=== PATIENT | female | born 1965 | race American Indian/Alaskan Native ===

== ENCOUNTER 2016-09-19 03:13 | Emergency (ER) | payer BC ==
[2016-09-19 03:13] VITALS: BMI 10.8
[2016-09-19] MEDS ORDERED: Albuterol-Ipratrop 3 mg / 0.5 (3 ml) UD ONE ×2 (03:32→03:43)
[2016-09-19] MEDS: Albuterol-Ipratrop 3 mg / 0.5 (3 ml) UD IH SCH ×2 (03:35→03:40)
--- NOTE | 2016-09-19 03:36 | C.PDOC ---
History Of Present Illness 50 y/o female, with history of asthma, presents to emergency department with complaint of shortness of breath and chest tightness, worsening since 8:00 PM. Patient reports she has had similar symptoms for the past 2 weeks, but that they have been manageable up until last night. Pt was seen by PMD last week and was d/c on promethazine DM, prednisone and nebs. She reports prior hospitalization and intubation for asthma in 2014. Denies fever, chills, chest pain, nausea, vomiting, dizziness, recent travel or other associated symptoms. Time Seen by Provider: 09/19/16 03:25 Chief Complaint (Nursing): Shortness Of Breath History Per: Patient History/Exam Limitations: no limitations Onset/Duration Of Symptoms: Days Current Symptoms Are (Timing): Still Present Current Respiratory Medications: See Home Med List Associated Symptoms: denies: Fever, Bloody Cough, Ankle/Leg Swelling, Dizziness , Light-headedness Recent travel outside of the [place]: No Past Medical History Reviewed: Historical Data, Nursing Documentation, Vital Signs Vital Signs: Last Vital Signs Temp 97.8 F 09/19/16 03:19 Pulse 87 09/19/16 03:19 Resp 17 09/19/16 03:43 BP 152/92 H 09/19/16 03:19 Pulse Ox 96 09/19/16 05:04 - Medical History PMH: Anxiety, Asthma (hx of being intubated04/08/14) Family History: States: Unknown Family Hx - Social History Hx Tobacco Use: No Hx Alcohol Use: No Hx Substance Use: No - Immunization History Hx Tetanus Toxoid Vaccination: No Hx Influenza Vaccination: No Hx Pneumococcal Vaccination: No Review Of Systems Except As Marked, All Systems Reviewed And Found Negative. Constitutional: Negative for: Fever, Chills Cardiovascular: Negative for: Chest Pain, Palpitations Respiratory: Positive for: Shortness of Breath, Wheezing. Negative for: Cough Gastrointestinal: Negative for: Nausea, Vomiting, Abdominal Pain Skin: Negative for: Rash Neurological: Negative for: Headache, Dizziness Physical Exam - Physical Exam Appears: Non-toxic, No Acute Distress Skin: Normal Color, Warm, Dry, No Diaphoretic, No Rash Head: Atraumatic, Normacephalic Eye(s): bilateral: Normal Inspection, EOMI Oral Mucosa: Moist Throat: Normal, No Erythema Neck: Normal ROM, Supple Chest: Symmetrical Cardiovascular: Rhythm Regular Respiratory: Decreased Breath Sounds (all lung nina), No Accessory Muscle Use , Rhonchi, No Stridor, Wheezing (expiratory) Gastrointestinal/Abdominal: Soft, No Tenderness Back: Normal Inspection Extremity: Normal ROM Neurological/Psych: Oriented x3, Normal Speech, Normal Cognition ED Course And Treatment - Laboratory Results Result Diagrams: 09/19/16 03:44 09/19/16 03:44 O2 Sat by Pulse Oximetry: 96 (RA) Pulse Ox Interpretation: Normal - Radiology CXR Interpretation: Yes: No Acute Disease. No: Infiltrates Progress Note: Treated with duoneb, solumedrol. CxR, bloodwork ordered and reviewed. Reassessment Condition: Improved (Pt reports much improved symptoms and ambulated in ER w/o dyspnea. Will d/c pt home and plan of treatment d/w pt who agrees with plan and return precautions also d/w pt who expressed understanding of these instructions) Disposition Counseled Patient/Family Regarding: Studies Performed, Diagnosis, Need For Followup, Rx Given - Disposition Referrals: Celia Weiss MD [Staff Provider] - Disposition: HOME/ ROUTINE Disposition Time: 05:13 Condition: STABLE Additional Instructions: Increase Fluids Continue nebulizer treament as needed Continue prednisone take all meds prescribed from ER Follow up with PMD Return to ER if worse Prescriptions: Azithromycin [Zithromax] 250 mg PO DAILY #6 tab Cetirizine HCl [Zyrtec] 10 mg PO DAILY #20 capsule Promethazine/Codeine [Codeine/Promethazine 10 MG/5 Ml-6.25 MG/5 Ml] 5 ml PO DAILY #120 ml Instructions: Acute Bronchitis (ED) Forms: [employer] (French) - Clinical Impression Clinical Impression: Bronchitis with bronchospasm - PA / [employer] PI ARCHITECT / Resident Statement MD/DO has reviewed & agrees with the documentation as recorded. - Scribe Statement The provider has reviewed the documentation as recorded by the Eve Orr All medical record entries made by the Elaineibshaun were at my direction and personally dictated by me. I have reviewed the chart and agree that the record accurately reflects my personal performance of the history, physical exam, medical decision making, and the department course for this patient. I have also personally directed, reviewed, and agree with the discharge instructions and disposition.
[2016-09-19 03:47] LABS: BASO % 0.7 % (0.0-2.0); EOS # 0.8 K/uL (0.0-0.7); EOS % 14.1 % (0.0-4.0); HEMATOCRIT 39.4 % (34.0-47.0); LYMPH # 2.4 K/uL (1.0-4.3); LYMPH % 40.4 % (20.0-40.0); MEAN CELL VOLUME 86.2 fL (81.0-99.0); MEAN CORPUSCULAR HEMOGLOBIN 28.4 pg (27.0-31.0); MEAN CORPUSCULAR HGB CONC 32.9 g/dL (33.0-37.0); MEAN PLATELET VOLUME 7.5 fL (7.2-11.7); MONO # 0.5 K/uL (0.0-0.8); MONO % 8.9 % (0.0-10.0); RED CELL DISTRIBUTION WIDTH 15.6 % (11.5-14.5)
[2016-09-19 04:06] LABS: ALKALINE PHOSPHATASE 73 U/L (38-126); ALT/SGPT 31 U/L (9-52); AST/SGOT 33 U/L (14-36); BILIRUBIN,TOTAL 0.5 mg/dL (0.2-1.3); BLOOD UREA NITROGEN 10 mg/dL (7-17); CALCIUM 8.5 mg/dl (8.6-10.4); CARBON DIOXIDE 26 mmol/L (22-30); CHLORIDE 100 mmol/L (98-107); GFR AFRICAN-AMERICAN > 60; GLUCOSE,RANDOM 105 mg/dL (65-105); POTASSIUM 3.5 mmol/L (3.6-5.2); SODIUM 139 mmol/L (132-148); TOTAL PROTEIN 7.3 g/dL (6.3-8.3)
[2016-09-19 05:31] VITALS: BP 150/90; PULSE 92; RESP 20; TEMP 98; O2SAT 97
--- NOTE | 2016-09-19 08:12 | RAD ---
HISTORY: SOB, chest tightness COMPARISON: Chest x-ray performed 04/13/15 TECHNIQUE: Chest PA and lateral FINDINGS: Examination limited by habitus. LUNGS: No focal consolidation. Please note that chest x-ray has limited sensitivity for the detection of pulmonary masses. PLEURA: No significant pleural effusion identified. No definite pneumothorax . CARDIOVASCULAR: Heart size appears within normal limits. OSSEOUS STRUCTURES: Degenerative changes of the spine. VISUALIZED UPPER ABDOMEN: Unremarkable. OTHER FINDINGS: None. IMPRESSION: No focal consolidation, significant pleural effusion, or definite pneumothorax identified.
== END 2016-09-19 05:31 | disposition home or self-care (01) ==
LOC: C.ER 03:13
DX: J20.9 Acute bronchitis, unspecified (principal)
CPT/HCPCS: 71020; 80053; 85025; 94640; 96374; 99283; J2930

== ENCOUNTER 2018-01-26 19:38 | Emergency (ER) | payer BC ==
[2018-01-26 19:38] VITALS: BMI 10.8
[2018-01-26 19:46] VITALS: BP 167/93; PULSE 58; RESP 18; TEMP 97.7; O2SAT 97
--- NOTE | 2018-01-26 20:40 | C.PDOC ---
History Of Present Illness 52 y/o F p/w R ankle pain s/p falling down steps, approximately 3 steps just prior to arrival. Now with pain on lateral R ankle. Denies headstrike, LOC, nausea, vomiting. Declines pain medication in ED. Time Seen by Provider: 01/26/18 19:51 Chief Complaint (Nursing): Lower Extremity Problem/Injury Past Medical History Vital Signs: Last Vital Signs Temp 97.7 F 01/26/18 19:43 Pulse 58 L 01/26/18 19:43 Resp 18 01/26/18 19:43 BP 167/93 H 01/26/18 19:43 Pulse Ox 97 01/26/18 19:43 - Medical History PMH: Anxiety, Asthma (hx of being intubated04/08/14) Denies: Chronic Kidney Disease Family History: States: Unknown Family Hx - Social History Hx Tobacco Use: No Hx Alcohol Use: No Hx Substance Use: No - Immunization History Hx Tetanus Toxoid Vaccination: No Hx Influenza Vaccination: No Hx Pneumococcal Vaccination: No Review Of Systems Except As Marked, All Systems Reviewed And Found Negative. Constitutional: Negative for: Fever Gastrointestinal: Negative for: Vomiting Physical Exam - Physical Exam Additional Physical Exam Comments: Gen: NAD Head: NC/AT CV: DP pulse 2+ Neuro: Sensation to ligh ttouch in tact in foot. Able to move digits. Extremities: Tenderness over lateral malleolus and ATFL. No tenderness over base of 5th metatarsal or midfoot. No tenderness at proximal tib/fib. ED Course And Treatment O2 Sat by Pulse Oximetry: 97 Medical Decision Making Medical Decision Making: CR Right ankle Report: Name: ARIAS PASCUAL Exam Date: Jan 26, 2018 8:41:15 PM EST Modality Type: CR\VT Description: CR - ANKLE COMPLETE 3VIEWS Gender: F Laterality: Right : 65 Referring Physician: Tim Cheung) EXAM: CR right Ankle, 3 View. CLINICAL HISTORY: PATIENT FELL. RT ANKLE PAIN COMPARISON: None provided. FINDINGS: BONES: No acute fracture or aggressive appearing osseous lesion. JOINTS: The joint spaces appear within normal limits. No dislocation. The ankle mortise is intact. SOFT TISSUES: The soft tissues are unremarkable. MISCELLANEOUS: Ccalcaneal spur IMPRESSION: Ccalcaneal spur Electronically signed on Jan 26, 2018 9:20:37 PM EST by: Jonathan Zhang M.D., Certified by [facility] wrap applied and crutches provided. Advised ibuprofen, ice, elevation. Disposition - Disposition Disposition: HOME/ ROUTINE Disposition Time: 21:41 Condition: STABLE Instructions: Ankle Sprain Forms: [facility] (Kyrgyz) - Clinical Impression Clinical Impression: Ankle sprain
--- NOTE | 2018-01-27 11:23 | RAD ---
Date of service: 01/26/2018 PROCEDURE: Right Ankle Radiographs. HISTORY: ankle pain COMPARISON: None available. FINDINGS: BONES: Bone alignment and mineralization are normal. There is no acute displaced fracture or bone destruction. There is a prominent plantar calcaneal spur. JOINTS: Normal. No osteoarthritis. Ankle mortise maintained. Talar dome intact SOFT TISSUES: Normal. OTHER FINDINGS: None. IMPRESSION: No acute fracture or dislocation.
== END 2018-01-26 22:00 | disposition home or self-care (01) ==
LOC: C.ER 19:38
DX: S93.401A Sprain of unspecified ligament of right ankle, initial encounter (principal); W10.9XXA Fall (on) (from) unspecified stairs and steps, initial encounter

== ENCOUNTER 2018-06-29 10:13 | Emergency (ER) | payer BC ==
[2018-06-29 10:13] VITALS: BMI 10.8
--- NOTE | 2018-06-29 11:25 | C.PDOC ---
History Of Present Illness 52 y/o female with hx asthma and ? arthritis c/o left shoulder pain that radiates down arm since yesterday. Patient denies any injury, heavy lifting or trauma. Patient took Tylenol without relief and admits to tingling around the left elbow. patient presently has arm in a sling. Time Seen by Provider: 06/29/18 11:20 Chief Complaint (Nursing): Upper Extremity Problem/Injury History Per: Patient History/Exam Limitations: no limitations Onset/Duration Of Symptoms: Days (1) Current Symptoms Are (Timing): Still Present Quality: "Pain" Recent travel outside of the [place]: No Additional History Per: Patient Past Medical History Reviewed: Historical Data, Nursing Documentation, Vital Signs Vital Signs: Last Vital Signs Temp 98.8 F 06/29/18 10:33 Pulse 66 06/29/18 10:33 Resp 20 06/29/18 10:33 BP 148/95 H 06/29/18 10:33 Pulse Ox 99 06/29/18 10:33 Primary Care Provider: Celia Weiss Medical History PMH: Anxiety, Asthma (hx of being intubated04/08/14) Denies: Chronic Kidney Disease Surgical History: No Surg Hx Family History: States: Unknown Family Hx - Social History Hx Tobacco Use: No Hx Alcohol Use: No Hx Substance Use: No - Immunization History Hx Tetanus Toxoid Vaccination: No Hx Influenza Vaccination: No Hx Pneumococcal Vaccination: No Review Of Systems Musculoskeletal: Positive for: Shoulder Pain (right shoulder radiating down right arm) Neurological: Positive for: Other (tingling around right elbow ). Negative for: Weakness, Numbness Physical Exam - Physical Exam Appears: Non-toxic, No Acute Distress, Other (right arm in sling) Skin: Warm, Dry Head: Atraumatic, Normacephalic Eye(s): bilateral: Normal Inspection Neck: Normal ROM, No Midline Cervical Tenderness, Other (Exquisite left trapezius tenderness) Extremity: Tenderness (Right humerus tenderness. No elbow tenderness. Able to pronate and supinate. ), Other (right hand and right wrist normal) Extremity: Right: Limited ROM To Joint (shoulder) Pulses: Left Radial: Normal, Right Radial: Normal Neurological/Psych: Oriented x3, Normal Speech, Normal Cognition ED Course And Treatment O2 Sat by Pulse Oximetry: 99 (on RA) Pulse Ox Interpretation: Normal - Other Rad Xray Lft Shoulder X-Ray: Viewed By Me, Read By Radiologist Interpretation: IMPRESSION: No fracture or lytic lesion. Arthrosis Medical Decision Making Medical Decision Making: Plan: Xray Lft Shoulder Tylenol 975mg PO Flexeril 10mg PO Lidoderm 5% 1ea TD xray shows arthrosis. pt with decreased pain. d/c wiht muscle relaxant, tylenol and ortho f/u Patient does not take NSAID's generally due to her asthma, will not give today. Disposition Counseled Patient/Family Regarding: Studies Performed, Diagnosis, Need For Followup, Rx Given - Disposition Referrals: Papa Barrios III, MD [Staff Provider] - Disposition Time: 13:01 Additional Instructions: Take patch off in 12 hours. Can use warm or cold compresses several times to left trapezius area. Muscle relaxatn up to 3 times a day- makes you sleepy, so no driving or working. May use sling for 1-2 days if helpful byt not longer or risk frozen shoulder, need to do shoulder exercises and follow up with PMD and orthopedics. Prescriptions: Acetaminophen [Tylenol 325mg tab] 650 mg PO Q4 #50 tab Cyclobenzaprine [Cyclobenzaprine HCl] 10 mg PO Q8 #9 tab Instructions: Muscle Spasms (DC), Active Range of Motion Exercises, Neck and Shoulders, Passive Range of Motion Exercises, Neck and Shoulders, Shoulder Pain (DC) Forms: [facility] (Italian), General Discharge Instructions - Clinical Impression Clinical Impression: Trapezius muscle spasm, Shoulder pain, left - PA / BENCH MOVER / Resident Statement MD/DO has reviewed & agrees with the documentation as recorded. - Scribe Statement The provider has reviewed the documentation as recorded by the Eve Burgos All medical record entries made by the Eve were at my direction and per sonally dictated by me. I have reviewed the chart and agree that the record accurately reflects my personal performance of the history, physical exam, medical decision making, and the department course for this patient. I have also personally directed, reviewed, and agree with the discharge instructions and disposition.
[2018-06-29] MEDS ORDERED: Lidocaine 5% Patch TD STA (11:43)
[2018-06-29] MEDS ORDERED: Lidocaine 5% Patch TD ONE (11:50)
--- NOTE | 2018-06-29 12:51 | RAD ---
Date of service: 06/29/2018 PROCEDURE: Radiographs of the Left Shoulder HISTORY: pain COMPARISON: No prior. TECHNIQUE: 3 views obtained. FINDINGS: BONES: . No fracture. JOINTS: Glenohumeral and acromioclavicular arthrosis SOFT TISSUES: Normal. OTHER FINDINGS: Thoracic spondylosis IMPRESSION: No fracture or lytic lesion. Arthrosis
[2018-06-29 13:16] VITALS: BP 146/93; PULSE 81; RESP 16; TEMP 98.2; O2SAT 97
== END 2018-06-29 13:15 | disposition home or self-care (01) ==
LOC: C.ER 10:13
DX: M25.512 Pain in left shoulder (principal); M62.838 Other muscle spasm

== ENCOUNTER 2018-06-29 23:56 | Emergency (ER) | payer BC ==
[2018-06-29 23:56] VITALS: BMI 10.8
[2018-06-30] MEDS ORDERED: Albuterol-Ipratrop 3 mg / 0.5 (3 ml) UD ONE ×2 (00:02→01:07)
--- NOTE | 2018-06-30 00:13 | C.PDOC ---
History Of Present Illness Patient was evaluated today for left shoulder pain, had CXR that was negative, sent home home with tylenol, flexeril, and lidoderm patch. She states after taking the flexeril she felt kind of jittery and SOB. She is currently speaking in complete sentences. Denies chest pain, fever, or chills. Patient was intubated for acute asthma exacerbation in 2014. Time Seen by Provider: 06/30/18 00:13 Chief Complaint (Nursing): Shortness Of Breath History Per: Patient History/Exam Limitations: no limitations Onset/Duration Of Symptoms: Hrs Current Symptoms Are (Timing): Still Present Current Respiratory Medications: See Home Med List Severity: Moderate Pain Scale Rating Of: 4 Associated Symptoms: denies: Fever, Chills, Chest Pain Recent travel outside of the [place]: No Past Medical History Reviewed: Historical Data, Nursing Documentation, Vital Signs Vital Signs: Last Vital Signs Temp 98.4 F 06/30/18 00:06 Pulse 100 H 06/30/18 00:06 Resp 21 06/30/18 00:06 BP 119/72 06/30/18 00:06 Pulse Ox 97 06/30/18 00:06 Primary Care Provider: Non [facility] Provider, - Medical History PMH: Anxiety, Asthma (hx of being intubated04/08/14) Denies: Chronic Kidney Disease Family History: States: No Known Family Hx - Social History Hx Tobacco Use: No Hx Alcohol Use: No Hx Substance Use: No - Immunization History Hx Tetanus Toxoid Vaccination: No Hx Influenza Vaccination: No Hx Pneumococcal Vaccination: No Review Of Systems Constitutional: Negative for: Fever, Chills Cardiovascular: Negative for: Chest Pain, Palpitations Respiratory: Positive for: Shortness of Breath. Negative for: Cough Gastrointestinal: Negative for: Nausea, Vomiting Neurological: Negative for: Weakness, Numbness Physical Exam - Physical Exam Appears: Non-toxic Skin: Warm, Dry Head: Normacephalic Oral Mucosa: Moist Neck: Trachea Midline, Supple Chest: Symmetrical, No Tenderness Cardiovascular: Rhythm Regular Respiratory: Decreased Breath Sounds, No Rales, No Rhonchi, Wheezing Gastrointestinal/Abdominal: Soft, No Tenderness Neurological/Psych: Oriented x3 ED Course And Treatment - Laboratory Results Result Diagrams: 06/30/18 01:03 06/30/18 01:03 ECG: Interpreted By Me, Viewed By Me ECG Rhythm: Sinus Rhythm (101), Nonspecific Changes O2 Sat by Pulse Oximetry: 97 (Room air) Pulse Ox Interpretation: Normal - Radiology CXR: Interpreted by Me, Viewed By Me CXR Interpretation: No: Infiltrates, Fracture, Pnemothorax Progress Note: Blood work, EKG, CXR, and urinalysis ordered. IV fluids, solumedrol, mag sulfate, and solumedrol administered. 2:30 no wheezing. feels fine. wants to go home. family at bedside(hipaa compliant) and agree Reevaluation Time: 02:28 Reassessment Condition: Improved Critical Care Time - Critical Care Note Total Time (in mins): 30 Documented critical care: time excludes all time spent performing seperately billable procedures. Medical Decision Making Medical Decision Making: Upon provider reevaluation patient is feeling better, is medically stable, and requires no further treatment in the ED at this time. Patient will be discharged home with Rx for prednisone, duoneb . Counseling was provided and all questions were answered regarding diagnosis and need for follow up with the referred clinic. There is agreement to discharge plan. Return if symptoms persist or worsen. Disposition Counseled Patient/Family Regarding: Studies Performed, Diagnosis, Need For Followup, Rx Given - Disposition Referrals: Gary Dominguez MD [Staff Provider] - Disposition: HOME/ ROUTINE Disposition Time: 00:13 Condition: FAIR Additional Instructions: Please return if symptoms recur Prescriptions: Albuterol/Ipratropium [Duoneb 3 MG/3 Ml-0.5 MG/3 Ml 3 Ml] 1 ea IH QID PRN #50 neb PRN Reason: Wheezing Prednisone [Deltasone] 20 mg PO DAILY #5 tablet Instructions: Asthma, Adult (DC) Forms: [employer] (Iraqi) - Clinical Impression Clinical Impression: Exacerbation of asthma - Scribe Statement The provider has reviewed the documentation as recorded by the Scribe Jerry Moscoso All medical record entries made by the Scribe were at my direction and personally dictated by me. I have reviewed the chart and agree that the record accurately reflects my personal performance of the history, physical exam, medical decision making, and the department course for this patient. I have also personally directed, reviewed, and agree with the discharge instructions and disposition.
[2018-06-30] MEDS ORDERED: Sodium Chloride 0.9% 1,000 ML IV ONE (00:26)
[2018-06-30] MEDS ORDERED: Magnesium Sulfate 1 gm in D5W 1 GM/100 ML BAG IVPB SCH (00:30)
[2018-06-30] MEDS: Albuterol-Ipratrop 3 mg / 0.5 (3 ml) UD IH SCH (00:59)
[2018-06-30] MEDS ORDERED: Sodium Chloride 0.9% 1,000 ML ONE (01:06)
[2018-06-30] MEDS ORDERED: Magnesium Sulfate 1 gm in D5W 2 GM/200 ML BAG IVPB ONE (01:07)
[2018-06-30 01:15] LABS: ARTERIAL BLOOD GAS HCO3 24.5 mmol/L (21-28); ARTERIAL BLOOD GAS O2 SAT 97.9 % (95-98); ARTERIAL BLOOD GAS PCO2 39 mm/Hg (35-45); ARTERIAL BLOOD GAS PO2 79 mm/Hg (80-100); ARTERIAL BLOOD GAS TCO2 25.4 mmol/L (22-28)
[2018-06-30 01:18] LABS: BASO % 0.1 % (0.0-2.0); HEMOGLOBIN 14.4 g/dL (11.0-16.0); LYMPH # 1.8 K/uL (1.0-4.3); LYMPH % 20.3 % (20.0-40.0); MEAN CELL VOLUME 89.4 fL (81.0-99.0); MEAN CORPUSCULAR HEMOGLOBIN 29.2 pg (27.0-31.0); MEAN CORPUSCULAR HGB CONC 32.7 g/dL (33.0-37.0); MEAN PLATELET VOLUME 7.4 fL (7.2-11.7); MONO # 0.5 K/uL (0.0-0.8); MONO % 5.6 % (0.0-10.0); NEUT # 6.7 K/uL (1.8-7.0); NRBC % 0.1 % (0.0-2.0); RBC 4.92 Mil/uL (3.80-5.20)
[2018-06-30 01:20] LABS: INR 1.1; PROTHROMBIN TIME 11.9 SECONDS (9.7-12.2)
[2018-06-30 01:52] LABS: ALB/GLOB RATIO 1.3 (1.0-2.1); ALBUMIN 3.9 g/dL (3.5-5.0); ALT/SGPT 15 U/L (9-52); AST/SGOT 40 U/L (14-36); BLOOD UREA NITROGEN 15 mg/dL (7-17); CALCIUM 8.5 mg/dl (8.6-10.4); GFR NON-AFRICAN AMERICAN > 60
[2018-06-30 02:40] VITALS: BP 117/63; PULSE 92; RESP 16; TEMP 97.9; O2SAT 98
--- NOTE | 2018-06-30 09:36 | RAD ---
Date of service: 06/30/2018 HISTORY: Shortness of breath COMPARISON: 09/19/2016 TECHNIQUE: 1 view obtained. FINDINGS: LUNGS: No active pulmonary disease. PLEURA: No significant pleural effusion identified, no pneumothorax apparent. CARDIOVASCULAR: No aortic atherosclerotic calcification present. Normal cardiac size. No pulmonary vascular congestion. OSSEOUS STRUCTURES: No significant abnormalities. VISUALIZED UPPER ABDOMEN: Normal. OTHER FINDINGS: None. IMPRESSION: No active disease.
== END 2018-06-30 02:48 | disposition home or self-care (01) ==
LOC: C.ER 23:56
DX: J45.901 Unspecified asthma with (acute) exacerbation (principal)
CPT/HCPCS: 71045; 80053; 82803; 83735; 85025; 85610; 94150; 94640; 96374; 99284; J2930; J3475; J7030